=== PATIENT | female | born 1950 | race Caucasian/White ===

== ENCOUNTER 2020-05-01 18:00 | Inpatient (IN) ==
[2020-05-01] MEDS ORDERED: LEVAQUIN PREMIX IV 750 MG 750 MG/150 ML BAG IV SCH (19:00)
[2020-05-01 19:11] LABS: ABG BASE EXCESS -2.9 mmol/L (-2.0-2.0); ABG HCO3 18.7 mmol/L (22-26)
[2020-05-01 19:14] LABS: ABG ALLEN TEST POS
--- NOTE | 2020-05-01 19:59 | RAD ---
CHEST, 1 VIEWHISTORY: SOB, FEVER, COVIDStudy: Single view of the chest.Comparison:April 26, 2020Findings:The cardiomediastinal silhouette is normal. Bilateral interstitial prominence. No focal consolidations, pleural effusions or pneumothorax. Osseous structures demonstrate no acute abnormality.IMPRESSION:1. Bilateral interstitial prominence. Findings may represent atypical infection, including viral etiologies.Electronically signed by: MIKA TAI (May 01, 2020 19:58:19)
[2020-05-01 20:12] VITALS: BMI 26.0
[2020-05-01 20:13] LABS: BASOPHILS # (AUTO) 0.1 X10^3/uL (0.0-0.1); BASOPHILS % (AUTO) 0.7 % (0.2-1.0); EOSINOPHILS # (AUTO) 0.1 x10^3/uL (0.0-0.2); EOSINOPHILS % (AUTO) 0.6 % (0.9-2.9); HEMATOCRIT 43.9 % (36.0-47.0); HEMOGLOBIN 14.5 g/dL (12.0-16.0); LYMPHOCYTES # (AUTO) 2.1 X10^3/uL (1.3-2.9); LYMPHOCYTES % (AUTO) 17.1 % (21.0-51.0); MEAN CORPUSCULAR HEMOGLOBIN 26.6 pg (27.0-34.0); MEAN CORPUSCULAR HGB CONC 33.1 g/dL (33.0-35.0); MEAN CORPUSCULAR VOLUME 80.6 fL (80.0-100.0); MEAN PLATELET VOLUME 7.5 fL (7.4-11.0); MONOCYTES # (AUTO) 0.8 x10^3/uL (0.3-0.8); MONOCYTES % (AUTO) 6.3 % (0.0-13.0); NEUTROPHILS # (AUTO) 9.3 x10^3/uL (2.2-4.8); NEUTROPHILS % (AUTO) 75.3 % (42.0-75.0); PLATELET COUNT 289 X10^3/uL (150.0-450.0); RED BLOOD COUNT 5.45 X10^6/uL (3.5-5.4); RED CELL DISTRIBUTION WIDTH 14.4 % (11.6-16.5); WHITE BLOOD COUNT 12.3 X10^3/uL (3.6-10.0)
[2020-05-01 20:23] LABS: ALANINE AMINOTRANSFERASE 21 Units/L (12-78); ALBUMIN 3.6 g/dL (3.4-5.0); ALKALINE PHOSPHATASE 124 Units/L (46-116); ASPARTATE AMINO TRANSFERASE 19 Units/L (15-37); BLOOD UREA NITROGEN 22 mg/dL (7-18); CARBON DIOXIDE 20.4 mmol/L (21-32); CHLORIDE 104 mmol/L (98-107); COR NA(FOR HYPERGLY) 140 mmol/L (136-145); CREATININE 1.31 mg/dL (0.55-1.02); SODIUM 139 mmol/L (136-145); TOTAL PROTEIN 7.7 g/dL (6.4-8.2); eGFR NON BLACK RACES 43 (>60)
[2020-05-01] MEDS: DUONEB 0.5 MG/3 MG (3 mL) NEB PRN (20:30)
[2020-05-01] MEDS: MUCOMYST (RESPIRATORY USE ONLY) NEB SCH (20:30)
[2020-05-01] MEDS: PULMICORT NEB TX 0.5 MG NEB SCH (20:30)
[2020-05-01] MEDS ORDERED: NS 1/2 1000 ML IV 1,000 ML IV ONE (20:44)
[2020-05-01] MEDS ORDERED: LEVAQUIN PREMIX IV 750 MG 750 MG/150 ML BAG IV ONE (20:45)
[2020-05-01] MEDS: ROBITUSSIN DM PO SCH ×2 (21:00→21:48)
[2020-05-01] MEDS ORDERED: DUONEB 0.5 MG/3 MG (3 mL) NEB SCH (21:00)
[2020-05-01] MEDS: NS 1/2 1000 ML IV 1,000 ML IV SCH (21:00)
[2020-05-01] MEDS: VSL#3 PO SCH (21:00)
[2020-05-01] MEDS ORDERED: HumuLIN R SUBCUT PRN (23:06)
[2020-05-01] MEDS ORDERED: RESTORIL CAP 15 MG PO PRN (23:10)
[2020-05-01] MEDS ORDERED: RESTORIL CAP 15 MG PO ONE (23:19)
[2020-05-01] MEDS ORDERED: ULTRAM ONE (23:19)
[2020-05-01] MEDS: TUSSIONEX PENNKINETIC SUSP PO PRN (23:26)
[2020-05-01] MEDS: ULTRAM PO PRN (23:30)
[2020-05-02] MEDS: DUONEB 0.5 MG/3 MG (3 mL) NEB PRN ×5 (00:40→20:50)
[2020-05-02] MEDS: ULTRAM PO PRN ×2 (05:31→13:29)
[2020-05-02 05:44] LABS: ABG BASE EXCESS 0.1 mmol/L (-2.0-2.0); ABG HCO3 23.6 mmol/L (22-26)
[2020-05-02 05:45] LABS: ABG ALLEN TEST POS
[2020-05-02 06:19] LABS: BASOPHILS % (AUTO) 0.3 % (0.2-1.0); EOSINOPHILS # (AUTO) 0.1 x10^3/uL (0.0-0.2); EOSINOPHILS % (AUTO) 1.3 % (0.9-2.9); HEMATOCRIT 39.3 % (36.0-47.0); HEMOGLOBIN 12.9 g/dL (12.0-16.0); LYMPHOCYTES % (AUTO) 31.1 % (21.0-51.0); MEAN CORPUSCULAR HEMOGLOBIN 26.8 pg (27.0-34.0); MEAN CORPUSCULAR HGB CONC 32.9 g/dL (33.0-35.0); MEAN CORPUSCULAR VOLUME 81.7 fL (80.0-100.0); MEAN PLATELET VOLUME 7.6 fL (7.4-11.0); MONOCYTES # (AUTO) 0.5 x10^3/uL (0.3-0.8); MONOCYTES % (AUTO) 7.9 % (0.0-13.0); NEUTROPHILS # (AUTO) 3.8 x10^3/uL (2.2-4.8); NEUTROPHILS % (AUTO) 59.4 % (42.0-75.0); PLATELET COUNT 224 X10^3/uL (150.0-450.0); RED BLOOD COUNT 4.81 X10^6/uL (3.5-5.4); RED CELL DISTRIBUTION WIDTH 14.6 % (11.6-16.5); WHITE BLOOD COUNT 6.3 X10^3/uL (3.6-10.0)
--- NOTE | 2020-05-02 06:41 | RAD ---
HISTORYShortness of breathSTUDYChest AP [id number]/12/2020FINDINGSThe heart is upper limits normal in size. No congestive heart failure is noted. The krystal are normal. The lungs are free of acute alveolar infiltrates. No pleural effusions are identified. Bony thorax is unremarkable.IMPRESSIONNo significant abnormality identifiedElectronically signed by: TREVOR COATES (May 02, 2020 06:40:00)
[2020-05-02 07:28] LABS: ALANINE AMINOTRANSFERASE 16 Units/L (12-78); ALKALINE PHOSPHATASE 99 Units/L (46-116); ASPARTATE AMINO TRANSFERASE 16 Units/L (15-37); BLOOD UREA NITROGEN 14 mg/dL (7-18); CALCIUM 8.8 mg/dL (8.5-10.1); CARBON DIOXIDE 21.1 mmol/L (21-32); CHLORIDE 106 mmol/L (98-107); COR CA(FOR HYPOALB) 9.6 mg/dL (8.5-10.1); CREATININE 0.91 mg/dL (0.55-1.02); SODIUM 139 mmol/L (136-145); TOTAL PROTEIN 6.6 g/dL (6.4-8.2); eGFR NON BLACK RACES > 60 (>60)
[2020-05-02] MEDS: PULMICORT NEB TX 0.5 MG NEB SCH ×2 (09:30→20:50)
[2020-05-02] MEDS: MUCOMYST (RESPIRATORY USE ONLY) NEB SCH ×2 (09:30→20:50)
[2020-05-02] MEDS ORDERED: NORCO 10/325 TAB PO PRN (10:48)
[2020-05-02] MEDS: DECADRON TAB PO SCH (11:00)
[2020-05-02] MEDS ORDERED: NORVASC TAB 10 MG PO SCH ×2 (11:00→21:00)
[2020-05-02] MEDS: TORADOL 30 MG VIAL IVP SCH ×2 (11:00→18:39)
[2020-05-02] MEDS ORDERED: SYNTHROID 100 mcg TAB PO SCH (11:00)
[2020-05-02] MEDS: VSL#3 PO SCH (11:00)
[2020-05-02] MEDS: LOVENOX INJ 40 MG SYR SC SCH (11:00)
[2020-05-02] MEDS: ROBITUSSIN DM PO SCH ×4 (12:03→20:35)
[2020-05-02] MEDS ORDERED: ZESTRIL TAB 20 MG ONE (12:46)
[2020-05-02] MEDS ORDERED: NS 1/2 1000 ML IV 1,000 ML IV ONE ×2 (12:47→19:37)
[2020-05-02] MEDS ORDERED: GLUCOPHAGE ONE ×2 (12:47→19:37)
[2020-05-02] MEDS: NS 1/2 1000 ML IV 1,000 ML IV SCH ×2 (13:23→22:33)
[2020-05-02] MEDS: LOPRESSOR TAB 25 MG PO SCH ×3 (13:24→20:33)
[2020-05-02] MEDS: GLUCOPHAGE PO SCH ×2 (13:24→20:33)
[2020-05-02] MEDS: PROTONIX TAB 40 MG PO SCH (13:26)
[2020-05-02] MEDS: UNIPHYL TAB 400 MG 24-HR PO SCH ×2 (13:26→20:35)
[2020-05-02] MEDS: ZESTRIL TAB 20 MG PO SCH (13:27)
--- NOTE | 2020-05-02 14:21 | DR.UPDATE ---
H&P Update History and Physical Update: History and Physical reviewed and patient examined. Changes noted: Yes with the following: PRESENTED TO THE OFFICE WITH COMPLAINTS OF PERSISTENT COUGH, SOB, FEVER, AND WEAKNESS. SHE REPORTS BEING UNABLE TO SPEAK MUCH WITHOUT BECOMING SEVERELY SHORT OF BREATH. SHORTNESS OF BR EATH IS ALSO WORSE ON EXERTION. SYMPTOMS HAVE BEEN PRESENT X 1 WEEK. SHE WAS TESTED FOR COVID-19 IN THE ER ON 05/06/20 AND WAS POSITIVE. SHE WAS GIVEN SOLU- MEDROL PRIOR TO DISCHARGE FROM THE ER. SHE HAS BEEN TAKING AZITHROMYCIN 500MG IV DAILY X 3 DAYS WELL NEBULIZER TREATMENTS WITHOUT IMPROVEMENT IN SYMPTOMS. SHE WAS ADMITTED TO THE HOSPITAL FOR FURTHER EVALUATION AND TREATMENT OF PNEUMONIA DUE TO COVID-19. ON ARRIVAL TO THE ER, VITALS WERE 97.6-104-22-94%NC-135/81. LABS WERE OBTAINED. ABNORMAL LAB VALUES INCLUDE THE FOLLOWING: WBC 12.3, RBC 5.45, CARBON DIOXIDE 20.4, BUN 22, CREATININE 1.31, GLUCOSE 145, ALK PHOS 124, CRP 15.90. AN ABG WAS OBTAINED AND REVEALED: PH 7.500, PC02 24.0, P02 116.0, HC03 18.7, 02 SATURATION 99.0, BASE EXCESS -2.9, FI02 28.0. BLOOD CULTURES WERE SET UP. A CHEST XRAY WAS OBTAINED AND REVEALED: Bilateral interstitial prominence. Findings may represent atypical infection, including viral etiologies. SHE WAS STARTED ON 1/2NS AT 75 ML/HR, LEVAQUIN 750MG IV Q48H, DUONEBS PRN, PULMICORT NEBS BID, MUCOMYST NEBS BID, TUSSIONEX 5ML PO Q12H PRN, ROBITUSSIN DM 10ML PO QID, LOVENOX 40MG SC DAILY, TORADOL 30MG IV Q8H, AND DECADROM 6MG PO DAILY. HER HOME MEDICATIONS WERE ALSO RESUMED. OTHERWISE, WE PLAN TO FOLLOW UP WITH AM LABS, CHEST XRAY, ABG, AND CONTINUE TO MONITOR. Prescription drug monitoring program results: PDMP was not reviewed H&P Reviewed: Yes Patient was examined?: Yes
[2020-05-02] MEDS ORDERED: SNACK - Diabetic Appropriate PO SCH (20:00)
[2020-05-02] MEDS: XANAX PO PRN (20:33)
[2020-05-02] MEDS: PHENERGAN TAB 25 MG PO PRN (20:36)
[2020-05-02] MEDS ORDERED: CELEXA PO SCH (21:00)
[2020-05-02] MEDS ORDERED: ZOCOR TAB 20 MG PO SCH (21:00)
[2020-05-02] MEDS ORDERED: ZANAFLEX PO SCH (21:00)
[2020-05-02] MEDS ORDERED: AMBIEN PO SCH (21:00)
[2020-05-02] MEDS: TUSSIONEX PENNKINETIC SUSP PO PRN (21:25)
[2020-05-02] MEDS: ZAFIRLUKAST 20 MG PO SCH (22:31)
[2020-05-03] MEDS: TORADOL 30 MG VIAL IVP SCH ×2 (02:08→09:15)
[2020-05-03] MEDS: ULTRAM PO PRN (05:36)
[2020-05-03] MEDS: XANAX PO PRN (05:37)
[2020-05-03] MEDS: PHENERGAN TAB 25 MG PO PRN (05:37)
[2020-05-03 05:47] LABS: BASOPHILS % (AUTO) 0.2 % (0.2-1.0); EOSINOPHILS % (AUTO) 0.3 % (0.9-2.9); HEMATOCRIT 36.4 % (36.0-47.0); LYMPHOCYTES # (AUTO) 1.1 X10^3/uL (1.3-2.9); LYMPHOCYTES % (AUTO) 15.2 % (21.0-51.0); MEAN CORPUSCULAR HGB CONC 32.9 g/dL (33.0-35.0); MEAN CORPUSCULAR VOLUME 82.1 fL (80.0-100.0); MEAN PLATELET VOLUME 7.9 fL (7.4-11.0); MONOCYTES # (AUTO) 0.5 x10^3/uL (0.3-0.8); MONOCYTES % (AUTO) 6.9 % (0.0-13.0); NEUTROPHILS # (AUTO) 5.7 x10^3/uL (2.2-4.8); NEUTROPHILS % (AUTO) 77.4 % (42.0-75.0); PLATELET COUNT 220 X10^3/uL (150.0-450.0); RED BLOOD COUNT 4.44 X10^6/uL (3.5-5.4); RED CELL DISTRIBUTION WIDTH 14.1 % (11.6-16.5); WHITE BLOOD COUNT 7.3 X10^3/uL (3.6-10.0)
[2020-05-03 05:54] LABS: ALANINE AMINOTRANSFERASE 15 Units/L (12-78); ALBUMIN 2.9 g/dL (3.4-5.0); ALKALINE PHOSPHATASE 86 Units/L (46-116); ASPARTATE AMINO TRANSFERASE 15 Units/L (15-37); BLOOD UREA NITROGEN 17 mg/dL (7-18); CARBON DIOXIDE 22.2 mmol/L (21-32); CHLORIDE 108 mmol/L (98-107); COR CA(FOR HYPOALB) 9.9 mg/dL (8.5-10.1); COR NA(FOR HYPERGLY) 140 mmol/L (136-145); CREATININE 0.92 mg/dL (0.55-1.02); SODIUM 139 mmol/L (136-145); TOTAL PROTEIN 6.3 g/dL (6.4-8.2); eGFR NON BLACK RACES > 60 (>60)
[2020-05-03 05:58] LABS: ABG ALLEN TEST POS
--- NOTE | 2020-05-03 06:22 | RAD ---
HISTORYSOBSTUDYCHEST, 1 [id number]/13/2020TECHNIQUEAP view of the chestFINDINGSCardiac and mediastinal contours appear normal. Subsegmental atelectasis versus scar in the left base. No pleural effusion or pneumothorax.IMPRESSIONNo significant change.Electronically signed by: Ayden Butt (May 03, 2020 06:21:38)
[2020-05-03] MEDS ORDERED: SYNTHROID 100 mcg TAB PO SCH (06:30)
[2020-05-03] MEDS ORDERED: ZESTRIL TAB 20 MG ONE (08:00)
[2020-05-03] MEDS: MUCOMYST (RESPIRATORY USE ONLY) NEB SCH (08:50)
[2020-05-03] MEDS: PULMICORT NEB TX 0.5 MG NEB SCH (08:50)
[2020-05-03] MEDS: DECADRON TAB PO SCH (09:07)
[2020-05-03] MEDS: PROTONIX TAB 40 MG PO SCH (09:08)
[2020-05-03] MEDS: ZAFIRLUKAST 20 MG PO SCH (09:08)
[2020-05-03] MEDS: VSL#3 PO SCH (09:09)
[2020-05-03] MEDS: ROBITUSSIN DM PO SCH (09:09)
[2020-05-03] MEDS: UNIPHYL TAB 400 MG 24-HR PO SCH (09:09)
[2020-05-03] MEDS: LOPRESSOR TAB 25 MG PO SCH (09:10)
[2020-05-03] MEDS: ZESTRIL TAB 20 MG PO SCH (09:10)
[2020-05-03] MEDS: LOVENOX INJ 40 MG SYR SC SCH (09:11)
[2020-05-03] MEDS: GLUCOPHAGE PO SCH (09:12)
[2020-05-03] MEDS ORDERED: GLUCOPHAGE ONE (10:06)
[2020-05-03 10:16] VITALS: BP 130/73
[2020-05-03] MEDS ORDERED: LEVAQUIN PREMIX IV 750 MG 750 MG/150 ML BAG IV SCH (20:00)
== END 2020-05-03 12:40 | disposition home or self-care (01) | DRG 177 ==
LOC: MED/SURG 18:24
PROVIDERS: ADMIT Internal Medicine; ATTEND Internal Medicine

== ENCOUNTER 2020-10-29 20:04 | Inpatient (IN) ==
[2020-10-29 20:14] VITALS: BMI 27.6
--- NOTE | 2020-10-29 20:15 | DR.SOBA ---
HPI Time Seen Time Seen by Provider: 10/29/20 20:13 HPI Comment HPI Comment: Brought in by EMS for sob worsening over the past few days along with nausea and flu like symptoms; noted to have a fever of 101.5 by ems as well as tachycardia; no significant cough; had covid back in April; she feels like her anxiety may be worsening sob PMH PMH Past Medical History: Asthma, COPD, Depression, Diabetes, Dyslipidemia and Hypertension Past Surgical History: Yes Surgical History: Ortho Surgery Family History Family Medical History: Diabetes Mellitus and CT Social History Do you use any recreational Drugs:: No ROS Review of Systems Constitutional: Malaise and Fatigue Eyes: No Symptoms Reported ENTM: No Symptoms Reported Cardiovascular: No Symptoms Reported Genitourinary: No Symptoms Reported Neurological: No Symptoms Reported Integumentary: No Symptoms Reported Hematologic/Lymphatic: No Symptoms Reported Endocrine: No Symptoms Reported Psychiatric: Anxiety PE Vital Signs Vitals: Temperature 98.6 F Pulse Rate 121 Respiratory Rate 17 Blood Pressure [Left Arm] 130/73 Blood Pressure 173/92 O2 Sat by Pulse Oximetry 97 General Limitations: No Limitations General Appearance: Alert and In No Apparent Distress Head Head Exam: Normal Inspection Eyes Eye exam: Normal Appearance ENT ENT Exam: Normal Exam Neck Neck Exam: Normal Inspection Chest Chest Inspection: Normal Inspection Respiratory Respiratory Exam: Left: Rales and Upper: Rales Cardiovascular Cardiovascular Exam: Regular Rate and Tachycardia Abdominal Exam Abdominal Exam: Normal Inspection, Normal Bowel Sounds and Soft Extremities Extremities Exam: Normal Inspection Back Back Exam: Normal Inspection Neurologic Neurological Exam: Alert and Oriented X3 Psychiatric Psychiatric Exam: Normal Affect and Normal Mood Skin Skin Exam: Warm, Dry, Intact and Normal Color COURSE Consultation Called: 00:38 (Unable to get in touch with Dr Russell; admitted nonetheless with plan to notify emiliano) ROR Labs Reviewed Laboratory Results Reviewed?: Yes Result Diagrams: 10/29/20 20:40 10/29/20 20:40 Laboratory: WBC 14.4 X10^3/uL (3.6-10.0) H 10/29/20 20:40 RBC 4.92 X10^6/uL (3.5-5.4) 10/29/20 20:40 Hgb 12.9 g/dL (12.0-16.0) 10/29/20 20:40 Hct 40.8 % (36.0-47.0) 10/29/20 20:40 MCV 82.8 fL (80.0-100.0) 10/29/20 20:40 MCH 26.3 pg (27.0-34.0) L 10/29/20 20:40 MCHC 31.7 g/dL (33.0-35.0) L 10/29/20 20:40 RDW 15.8 % (11.6-16.5) 10/29/20 20:40 Plt Count 257 X10^3/uL (150.0-450.0) 10/29/20 20:40 Plt Count Comment Adequate (ADEQUATE) 10/29/20 20:40 MPV 7.9 fL (7.4-11.0) 10/29/20 20:40 Neut % (Auto) 88.4 % (42.0-75.0) H 10/29/20 20:40 Lymph % (Auto) 3.5 % (21.0-51.0) L 10/29/20 20:40 [place] % (Auto) 6.1 % (0.0-13.0) 10/29/20 20:40 Eos % (Auto) 0.3 % (0.9-2.9) L 10/29/20 20:40 Baso % (Auto) 1.7 % (0.2-1.0) H 10/29/20 20:40 Neut # (Auto) 12.7 x10^3/uL (2.2-4.8) H 10/29/20 20:40 Lymph # (Auto) 0.5 X10^3/uL (1.3-2.9) L 10/29/20 20:40 [place] # (Auto) 0.9 x10^3/uL (0.3-0.8) H 10/29/20 20:40 Eos # (Auto) 0.0 x10^3/uL (0.0-0.2) 10/29/20 20:40 Baso # (Auto) 0.3 X10^3/uL (0.0-0.1) H 10/29/20 20:40 Absolute Nucleated RBC 0.1 /100WBC 10/29/20 20:40 Total Counted 100 10/29/20 20:40 Neutrophils % (Manual) 88 % (39-76) H 10/29/20 20:40 Lymphocytes % (Manual) 7 % (13-43) L 10/29/20 20:40 Monocytes % (Manual) 4 % (4-9) 10/29/20 20:40 Plt Morphology Comment Normal (NORMAL) 10/29/20 20:40 RBC Morphology Normal (NORMAL) 10/29/20 20:40 Sample Site Lrad 10/29/20 20:50 ABG pH 7.450 (7.35-7.45) 10/29/20 20:50 ABG pCO2 32.0 mmHg (35.0-45.0) L 10/29/20 20:50 ABG pO2 83.0 mmHg (80.0-100.0) 10/29/20 20:50 ABG HCO3 22.2 mmol/L (22-26) 10/29/20 20:50 ABG O2 Saturation 97.0 % (90-100) 10/29/20 20:50 ABG Base Excess -1.1 mmol/L (-2.0-2.0) 10/29/20 20:50 Yoandy Test Pos 10/29/20 20:50 A-a Gradient 77.0 mmHg 10/29/20 20:50 FiO2 28.0 10/29/20 20:50 Blood Gas Comments Keny well ah 10/29/20 20:50 Sodium 140 mmol/L (136-145) 10/29/20 20:40 Corrected Sodium 142 mmol/L (136-145) 10/29/20 20:40 Potassium 4.0 mmol/L (3.5-5.1) 10/29/20 20:40 Chloride 105 mmol/L (98-107) 10/29/20 20:40 Carbon Dioxide 23.1 mmol/L (21-32) 10/29/20 20:40 BUN 18 mg/dL (7-18) 10/29/20 20:40 Creatinine 0.94 mg/dL (0.55-1.02) 10/29/20 20:40 Est GFR (MDRD) Af Amer > 60 (>60) 10/29/20 20:40 Est GFR (MDRD) Non-Af > 60 (>60) 10/29/20 20:40 Glucose 185 mg/dL (65-99) H 10/29/20 20:40 Calcium 10.3 mg/dL (8.5-10.1) H 10/29/20 20:40 Corrected Calcium TNP 10/29/20 20:40 Total Bilirubin 0.30 mg/dL (0.2-1.0) 10/29/20 20:40 AST 12 Units/L (15-37) L 10/29/20 20:40 ALT 12 Units/L (12-78) 10/29/20 20:40 Alkaline Phosphatase 110 Units/L (46-116) 10/29/20 20:40 Total Protein 7.3 g/dL (6.4-8.2) 10/29/20 20:40 Albumin 3.6 g/dL (3.4-5.0) 10/29/20 20:40 Globulin 3.7 g/dL (2.5-4.5) 10/29/20 20:40 Albumin/Globulin Ratio 1.0 Ratio (1.1-2.1) L 10/29/20 20:40 Influenza Type A (PCR) Negative (NEGATIVE) 10/29/20 20:38 Influenza Type B (PCR) Negative (NEGATIVE) 10/29/20 20:38 SARS CoV-2 RNA Rapid TANNA Negative (NEGATIVE) 10/29/20 20:38 XRAY XRAY Interpreted by: Radiologist X-ray Results: CXR: 1. Findings consistent with mild to moderate CHF or volume overload in the appropriate clinical setting (new findings); DDX includes (but is not limited to) acute pneumonia (e.g. Covid pneumonia) in the appropriate clinical setting. 2. Recommend clinical correlation and appropriate follow evaluation to ensure interval clearance as clinically warranted. 3. Consider follow up CT to rule out Covid pneumonia if clinically warranted. CT chest: Unremarkable CTA of the chest. Patchy multifocal pneumonic infiltrates involving the left upper and left lower lobes. Opioid Opioid Risk Tool Age (Marck box if 16-45): No History of Preadolescent Sexual Abuse: No Total: 0 Total Score Risk Category: Low Risk Copyright: Monroy predicting aberrant behaviors Diagnosis Discharge Problem: Hypoxia, Tachycardia Pneumonia involving left lung Qualifiers: Pneumonia type: due to unspecified organism Lung location: upper lobe of lung Qualified Code(s): J18.9 - Pneumonia, unspecified organism Dyspnea Qualifiers: Dyspnea type: shortness of breath Qualified Code(s): R06.02 - Shortness of breath Instructions Instructions: Shortness of Breath, Adult, [id number] Forms: Patient Portal Social Distancing
[2020-10-29 20:55] LABS: ABG ALLEN TEST POS; ABG BASE EXCESS -1.1 mmol/L (-2.0-2.0); ABG HCO3 22.2 mmol/L (22-26)
[2020-10-29 21:01] LABS: BASOPHILS # (AUTO) 0.3 X10^3/uL (0.0-0.1); BASOPHILS % (AUTO) 1.7 % (0.2-1.0); EOSINOPHILS % (AUTO) 0.3 % (0.9-2.9); HEMATOCRIT 40.8 % (36.0-47.0); HEMOGLOBIN 12.9 g/dL (12.0-16.0); LYMPHOCYTES # (AUTO) 0.5 X10^3/uL (1.3-2.9); LYMPHOCYTES % (AUTO) 3.5 % (21.0-51.0); MEAN CORPUSCULAR HEMOGLOBIN 26.3 pg (27.0-34.0); MEAN CORPUSCULAR HGB CONC 31.7 g/dL (33.0-35.0); MEAN CORPUSCULAR VOLUME 82.8 fL (80.0-100.0); MEAN PLATELET VOLUME 7.9 fL (7.4-11.0); MONOCYTES # (AUTO) 0.9 x10^3/uL (0.3-0.8); MONOCYTES % (AUTO) 6.1 % (0.0-13.0); NEUTROPHILS # (AUTO) 12.7 x10^3/uL (2.2-4.8); NEUTROPHILS % (AUTO) 88.4 % (42.0-75.0); PLATELET COUNT 257 X10^3/uL (150.0-450.0); RED BLOOD COUNT 4.92 X10^6/uL (3.5-5.4); RED CELL DISTRIBUTION WIDTH 15.8 % (11.6-16.5); WHITE BLOOD COUNT 14.4 X10^3/uL (3.6-10.0)
--- NOTE | 2020-10-29 21:06 | RAD ---
EXAM: CHEST X-RAYHISTORY: Difficulty breathing. Shortness of breath. Fever.TECHNIQUE: AP chest x-ray dated October 29, 2020 at 8:21 PM.COMPARISON: CXR dated May 03, 2020.FINDINGS:There is evidence for borderline cardiomegaly. The pulmonary vascularity and interstitial markings are diffusely prominent, especially in the left lower lung field, consistent with mild to moderate CHF or volume overload in the appropriate clinical setting; differential diagnosis includes (but is not limited to) mild bronchitis and interstitial pneumonia in the appropriate clinical setting.There is no gross focal lung consolidation, pleural effusion, or pneumothorax seen. The visualized bony structures are within normal limits.IMPRESSION:1. Findings consistent with mild to moderate CHF or volume overload in the appropriate clinical setting (new findings); DDX includes (but is not limited to) acute pneumonia (e.g. Covid pneumonia) in the appropriate clinical setting.2. Recommend clinical correlation and appropriate follow evaluation to ensure interval clearance as clinically warranted.3. Consider follow up CT to rule out Covid pneumonia if clinically warranted.Electronically signed by: Angel Ames (Oct 29, 2020 21:05:03)
[2020-10-29 21:09] LABS: ALANINE AMINOTRANSFERASE 12 Units/L (12-78); ALBUMIN 3.6 g/dL (3.4-5.0); ALKALINE PHOSPHATASE 110 Units/L (46-116); ASPARTATE AMINO TRANSFERASE 12 Units/L (15-37); BLOOD UREA NITROGEN 18 mg/dL (7-18); CALCIUM 10.3 mg/dL (8.5-10.1); CARBON DIOXIDE 23.1 mmol/L (21-32); CHLORIDE 105 mmol/L (98-107); COR NA(FOR HYPERGLY) 142 mmol/L (136-145); CREATININE 0.94 mg/dL (0.55-1.02); SODIUM 140 mmol/L (136-145); TOTAL PROTEIN 7.3 g/dL (6.4-8.2); eGFR NON BLACK RACES > 60 (>60)
[2020-10-29] MEDS ORDERED: NS 100 ML IV 100 ML IV ONE (21:34)
[2020-10-29 21:41] LABS: PLATELET MORPHOLOGY COMMENT NORMAL (NORMAL)
--- NOTE | 2020-10-29 22:17 | CT ---
HISTORYSOB, TACHYCARDIASTUDYCTA CHESTCOMPARISONChest radiograph 10/29/2020TECHNIQUEMultiple axial images of the chest were obtained from the thoracic inlet to the upper abdomen after the administration of IV contrast. 3D reconstructions utilizing axial MIPS imaging was performed and reviewed. Dose reduction techniques including Automated Exposure Control (AEC) and adjustment of mA and kV were utilized.FINDINGSThe mediastinum does not demonstrate significant pathological lymphadenopathy. There is no paracardial effusion observed. The thoracic aorta is normal in its contour without evidence for aneurysmal dilatation. The central pulmonary arterial system does not demonstrate central filling defects to suggest pulmonary emboli.Evaluation of the lung parenchyma demonstrates patchy multifocal pneumonic infiltrates within the left upper and lower lobes. No pleural effusion or pneumothorax.. No pulmonary nodule or mass can be identified. The bony thorax is unremarkable in its appearance . The visualized portions of the upper abdomen are grossly unremarkable .IMPRESSIONUnremarkable CTA of the chest.Patchy multifocal pneumonic infiltrates involving the left upper and left lower lobes.Electronically signed by: Sharath Hartley (Oct 29, 2020 22:15:37)
[2020-10-30] MEDS ORDERED: ZOSYN VIAL 2.25 GRAMS 2.25 G in NS 100 ML IV + SPIKE MINIBAG* 100 ML IV SCH (00:28)
[2020-10-30] MEDS ORDERED: DUONEB 0.5 MG/3 MG (3 mL) NEB PRN (00:33)
[2020-10-30] MEDS ORDERED: NS 1000 ML 1,000 ML ONE (00:51)
[2020-10-30] MEDS ORDERED: ZESTRIL TAB 20 MG ONE ×2 (00:54→20:32)
[2020-10-30] MEDS ORDERED: ULTRAM ONE ×2 (00:54→14:01)
[2020-10-30] MEDS: ULTRAM PO SCH ×4 (00:55→21:35)
[2020-10-30] MEDS: NS 1000 ML 1,000 ML IV SCH ×2 (01:01→14:09)
[2020-10-30] MEDS: ZESTRIL TAB 20 MG PO SCH ×2 (01:01→21:53)
[2020-10-30] MEDS ORDERED: NS 100 ML IV + SPIKE MINIBAG* 100 ML IV ONE ×3 (01:09→13:59)
[2020-10-30] MEDS ORDERED: ZOSYN VIAL 2.25 GRAMS IV ONE ×2 (01:09→05:51)
[2020-10-30] MEDS ORDERED: TOPROL XL PO ONE (01:09)
[2020-10-30] MEDS ORDERED: ZOFRAN INJ 4 MG VIAL IVP ONE (01:23)
[2020-10-30] MEDS: TOPROL XL PO SCH ×2 (01:23→10:40)
[2020-10-30] MEDS: ZOSYN VIAL 2.25 GRAMS 2.25 G in NS 100 ML IV + SPIKE MINIBAG* 100 ML IV SCH ×2 (01:23→06:03)
[2020-10-30] MEDS ORDERED: ZOFRAN INJ 4 MG VIAL ONE (01:24)
[2020-10-30 04:44] LABS: BASOPHILS # (AUTO) 0.1 X10^3/uL (0.0-0.1); BASOPHILS % (AUTO) 0.9 % (0.2-1.0); EOSINOPHILS % (AUTO) 0.1 % (0.9-2.9); HEMATOCRIT 35.4 % (36.0-47.0); HEMOGLOBIN 11.4 g/dL (12.0-16.0); LYMPHOCYTES # (AUTO) 1.8 X10^3/uL (1.3-2.9); LYMPHOCYTES % (AUTO) 11.7 % (21.0-51.0); MEAN CORPUSCULAR HEMOGLOBIN 26.5 pg (27.0-34.0); MEAN CORPUSCULAR HGB CONC 32.1 g/dL (33.0-35.0); MEAN CORPUSCULAR VOLUME 82.6 fL (80.0-100.0); MONOCYTES # (AUTO) 1.2 x10^3/uL (0.3-0.8); MONOCYTES % (AUTO) 7.4 % (0.0-13.0); NEUTROPHILS # (AUTO) 12.4 x10^3/uL (2.2-4.8); NEUTROPHILS % (AUTO) 79.9 % (42.0-75.0); PLATELET COUNT 240 X10^3/uL (150.0-450.0); RED BLOOD COUNT 4.29 X10^6/uL (3.5-5.4); RED CELL DISTRIBUTION WIDTH 16.3 % (11.6-16.5); WHITE BLOOD COUNT 15.5 X10^3/uL (3.6-10.0)
[2020-10-30 05:03] LABS: ALANINE AMINOTRANSFERASE 11 Units/L (12-78); ALKALINE PHOSPHATASE 81 Units/L (46-116); ASPARTATE AMINO TRANSFERASE 11 Units/L (15-37); BLOOD UREA NITROGEN 13 mg/dL (7-18); CALCIUM 9.8 mg/dL (8.5-10.1); CARBON DIOXIDE 25.4 mmol/L (21-32); CHLORIDE 106 mmol/L (98-107); COR CA(FOR HYPOALB) 10.6 mg/dL (8.5-10.1); COR NA(FOR HYPERGLY) 141 mmol/L (136-145); CREATININE 0.81 mg/dL (0.55-1.02); SODIUM 140 mmol/L (136-145); TOTAL PROTEIN 6.6 g/dL (6.4-8.2); eGFR NON BLACK RACES > 60 (>60)
[2020-10-30] MEDS ORDERED: TUSSIONEX PENNKINETIC SUSP PO PRN (08:19)
[2020-10-30] MEDS ORDERED: LEVAQUIN PREMIX IV 750 MG 750 MG/150 ML BAG IV ONE (08:56)
[2020-10-30] MEDS: LEVAQUIN PREMIX IV 750 MG 750 MG/150 ML BAG IV SCH (10:34)
[2020-10-30] MEDS: ROBITUSSIN DM PO SCH ×4 (10:35→21:15)
[2020-10-30] MEDS ORDERED: LOVENOX INJ 40 MG SYR SC ONE (10:36)
[2020-10-30] MEDS ORDERED: PHENERGAN TAB 25 MG PO PRN (10:39)
[2020-10-30] MEDS: LOVENOX INJ 40 MG SYR SC SCH (10:39)
[2020-10-30] MEDS ORDERED: LINZESS PO PRN (10:39)
[2020-10-30] MEDS ORDERED: ZOFRAN TAB 4 MG PO PRN (10:39)
[2020-10-30] MEDS ORDERED: UNIPHYL TAB 400 MG 24-HR PO SCH (11:00)
[2020-10-30] MEDS ORDERED: XANAX PO PRN (11:23)
[2020-10-30] MEDS ORDERED: PEPCID TAB 20 MG ONE (11:37)
[2020-10-30] MEDS ORDERED: PROTONIX TAB 40 MG PO ONE (11:37)
[2020-10-30] MEDS ORDERED: SOLU-Medrol 40 MG VIAL ONE (11:38)
[2020-10-30] MEDS: PEPCID TAB 20 MG PO SCH (12:02)
[2020-10-30] MEDS: ZAFIRLUKAST 20 MG PO SCH ×2 (12:02→21:15)
[2020-10-30] MEDS: SOLU-Medrol 40 MG VIAL IVP SCH ×3 (12:02→21:45)
[2020-10-30] MEDS: THEO-24 CAP 200 MG (24-HR) PO SCH ×2 (12:03→21:15)
[2020-10-30] MEDS: PROTONIX TAB 40 MG PO SCH ×2 (12:03→21:15)
--- NOTE | 2020-10-30 12:28 | DR.H&P ---
H&P - History & Physical for Day of: H&P Date: 10/30/20 - Chief Complaint Chief Complaint: SOB, NAUSEA, FEVER, BODY ACHES - History of Present Illness History of Present Illness: IS A 70 YEAR OLD PATIENT OF OURS WHO PRESENTED TO THE ER VIA EMS FOR COMPLAINTS OF SHORTNESS OF BREATH, NAUSEA, FEVER, AND BODY ACHES. SHE COMPLAINED OF CHEST TIGHTNESS, BUT DENIED PAIN. SYMPTOMS STARTED ABOUT THREE DAYS PRIOR AND HAVE PROGRESSIVELY GOTTEN WORSE. PATIENT REPORTS HAVING COVID BACK IN APRIL. HER PMH ALSO INCLUDES: ASTHMA, COPD, DEPRESSION, DIABETES, DYSLIPIDEMIA, AND HTN. EMS REPORTS THAT HER SATURATIONS ON ARRIVAL TO SCENE WERE 90%. SHE WAS PLACED ON OXYGEN VIA NASAL CANNULA AT 2 LPM. ON ARRIVAL TO THE ER, VITALS WERE 99.7-134-22-98%NC-164/80. LABS WERE OBTAINED. ABNORMAL LAB VALUES INCLUDE THE FOLLOWING: WBC 14.4, GLUCOSE 185, AST 12. ABG REVEALED: PH 7.450, PC02 32, P02 83, HC03 22.2, 02 SAT 97, BASE EXCESS -1.1, A-A GRADIENT 77, FI02 28. COVID AND INFLUENZA NEGATIVE. A CHEST XRAY WAS OBTAINED AND REVEALED: 1. Findings consistent with mild to moderate CHF or volume overload in the appropriate clinical setting (new findings); DDX includes (but is not limited to) acute pneumonia (e.g. Covid pneumonia) in the appropriate clinical setting. 2. Recommend clinical correlation and appropriate follow evaluation to ensure interval clearance as clinically warranted. 3. Consider follow up CT to rule out Covid pneumonia if clinically warranted. A CHEST CTA WAS THEN OBTAINED AND REVEALED: Unremarkable CTA of the chest. Patchy multifocal pneumonic infiltrates involving the left upper and left lower lobes. IN THE ER, SHE WAS GIVEN ZOFRAN 4MG IV X 1 DOSE AND ZOSYN 2.25G IV X 1 DOSE. SHE WAS ADMITTED TO THE HOSPITAL FOR FURTHER EVALUATION AND TREATMENT OF MULTIFOCAL PNEUMONIA AND HYPOXIA. SHE WAS STARTED ON THE PNUMONIA PROTOCOL WITH NORMAL SALINE AT 80 ML/HR, LEVAQUIN 750MG IV DAILY, ZOSYN 3.375G IV TID, DUONEBS TID, TUSSIONEX 5ML PO Q12H PRN, ROBITUSSIN DM 10 ML PO QID, LOVENOX 40MG SC DAILY, HUMULIN R SLIDING SCALE, SOLU-MEDROL 40MG IV Q8H, AND HER HOME MEDICATIONS WERE RESUMED. OTHERWISE, WE PLAN TO FOLLOW UP WITH AM LABS AND CHEST XRAY AND CONTINUE TO MONITOR. - Past Medical History Past Medical History: Hypertension, Dyslipidemia, Diabetes, Depression, COPD, Asthma - Past Surgical History Surgical History: Ortho Surgery - Family History Family Medical History: Diabetes Mellitus, [place] - Social History Does patient currently use any type of tobacco product: Yes Have you used tobacco products in the last 12 months: Yes Type of Tobacco Use: Cigarettes Does any household member use tobacco: No Alcohol Use: None Drug Use: None - Medications Home Medications: roflumilast [From [facility]] Allergy (Verified 10/29/20 20:41) CONTINUE taking the following medications famotidine [Pepcid] 20 mg PO DAILY 10/29/20 [History] linaclotide [Linzess] 145 mcg PO PRN PRN 10/29/20 [History] ondansetron HCl [Zofran] 4 mg PO Q6H PRN 10/29/20 [History] quetiapine [Seroquel] 100 mg PO HS 10/29/20 [History] - Review of Systems Constitutional: Fever, Chills, Weakness Eyes: No Symptoms Reported ENT: No Symptoms Reported Respiratory: Shortness of Breath Cardiovascular: No Symptoms Reported Gastrointestinal: No Symptoms Reported Genitourinary: No Symptoms Reported Musculoskeletal: No Symptoms Reported Skin: No Symptoms Reported Neurological: Weakness - Physical Exam Vital Signs: Temperature 98.6 F Pulse Rate [Right Radial] 70 Pulse Rate 121 Respiratory Rate 17 Blood Pressure [Left Arm] 98/75 Blood Pressure 173/92 O2 Sat by Pulse Oximetry 97 Oriented: Normal Eyes: Normal Ear: Normal Nose: Normal Throat: Normal Respiratory: Wheezes Throughout Cardiovascular: Tachycardia : Normal Auscultation: Bowel Sounds: Normal Palpation: Normal Tenderness: Normal Skin: Normal Musculoskeletal: Normal Psychiatric: Normal Mood Description: Calm Affect: Normal Speech Pattern: Clear - Assessment/Plan (1) Pneumonia involving left lung Qualifiers: Pneumonia type: due to unspecified organism Lung location: upper lobe of lung Qualified Code(s): J18.9 - Pneumonia, unspecified organism Status: Acute Plan: ADMIT, SUPPLEMENTAL OXYGEN, NORMAL SALINE AT 80 ML/HR, LEVAQUIN 750MG IV DAILY, ZOSYN 3.375G IV TID, DUONEBS TID, TUSSIONEX 5ML PO Q12H PRN, ROBITUSSIN DM 10 ML PO QID, LOVENOX 40MG SC DAILY, HUMULIN R SLIDING SCALE, SOLU-MEDROL 40MG IV Q8H, AND HER HOME MEDICATIONS WERE RESUMED (2) Hypoxia Status: Acute - Allergies Allergies/Adverse Reactions: Allergies Allergy/AdvReac Type Severity Reaction Status Date / Time roflumilast [From [facility]] Allergy Verified 10/29/20 20:41
[2020-10-30] MEDS ORDERED: ZOSYN VIAL 3.375 GRAMS IV ONE (13:59)
[2020-10-30] MEDS: DUONEB 0.5 MG/3 MG (3 mL) NEB SCH ×2 (14:00→21:30)
[2020-10-30] MEDS ORDERED: DUONEB 0.5 MG/3 MG (3 mL) NEB ONE (14:08)
[2020-10-30] MEDS: ZOSYN VIAL 3.375 GRAMS 3.375 G in NS 100 ML IV + SPIKE MINIBAG* 100 ML IV SCH ×2 (14:10→21:35)
[2020-10-30] MEDS: NORCO 10/325 TAB PO PRN (18:00)
[2020-10-30] MEDS: SNACK - Diabetic Appropriate PO SCH (20:15)
[2020-10-30] MEDS ORDERED: ZESTRIL TAB 20 MG PO SCH (21:00)
[2020-10-30] MEDS ORDERED: HumuLIN R ONE (21:02)
[2020-10-30] MEDS: HumuLIN R SUBCUT PRN (21:15)
[2020-10-30] MEDS: AMBIEN PO SCH (21:15)
[2020-10-30] MEDS: SYNTHROID 100 mcg TAB PO SCH (21:15)
[2020-10-30] MEDS: ZOCOR TAB 20 MG PO SCH (21:15)
[2020-10-30] MEDS: NORVASC TAB 10 MG PO SCH (21:50)
[2020-10-30] MEDS: ZANAFLEX PO SCH (21:53)
[2020-10-31] MEDS: SOLU-Medrol 40 MG VIAL IVP SCH ×3 (05:20→21:44)
[2020-10-31] MEDS: ULTRAM PO SCH ×4 (05:25→21:47)
[2020-10-31] MEDS: NS 1000 ML 1,000 ML IV SCH ×2 (05:25→15:47)
[2020-10-31] MEDS: HumuLIN R SUBCUT PRN (05:38)
[2020-10-31] MEDS: ZOSYN VIAL 3.375 GRAMS 3.375 G in NS 100 ML IV + SPIKE MINIBAG* 100 ML IV SCH ×3 (05:39→21:43)
[2020-10-31 06:06] LABS: BASOPHILS % (AUTO) 0.4 % (0.2-1.0); EOSINOPHILS % (AUTO) 0.1 % (0.9-2.9); HEMATOCRIT 32.9 % (36.0-47.0); HEMOGLOBIN 10.9 g/dL (12.0-16.0); LYMPHOCYTES # (AUTO) 0.5 X10^3/uL (1.3-2.9); MEAN CORPUSCULAR HEMOGLOBIN 27.5 pg (27.0-34.0); MEAN CORPUSCULAR HGB CONC 33.1 g/dL (33.0-35.0); MEAN CORPUSCULAR VOLUME 82.9 fL (80.0-100.0); MEAN PLATELET VOLUME 8.5 fL (7.4-11.0); MONOCYTES # (AUTO) 0.3 x10^3/uL (0.3-0.8); MONOCYTES % (AUTO) 3.1 % (0.0-13.0); NEUTROPHILS # (AUTO) 9.4 x10^3/uL (2.2-4.8); NEUTROPHILS % (AUTO) 91.4 % (42.0-75.0); PLATELET COUNT 225 X10^3/uL (150.0-450.0); RED BLOOD COUNT 3.98 X10^6/uL (3.5-5.4); RED CELL DISTRIBUTION WIDTH 16.5 % (11.6-16.5); WHITE BLOOD COUNT 10.2 X10^3/uL (3.6-10.0)
--- NOTE | 2020-10-31 06:09 | RAD ---
HISTORYShortness of breathSTUDYChest AP portableCOMPARISON9 October 2020 chest x-ray and CTA chestFINDINGSHeart is within normal limits in size. Vivien are normal. Bibasilar lung infiltrates are identified. There is some improvement in the left basilar lung infiltrate when compared to the prior examination. The upper lung back are clear. No pleural effusions are identified. Bony thorax is unremarkable.IMPRESSIONRight basilar lung infiltrate unchangedImproving left basilar lung infiltrateElectronically signed by: TREVOR COATES (Oct 31, 2020 06:07:19)
[2020-10-31] MEDS: DUONEB 0.5 MG/3 MG (3 mL) NEB SCH ×3 (06:13→21:50)
[2020-10-31 06:23] LABS: ALANINE AMINOTRANSFERASE 14 Units/L (12-78); ALKALINE PHOSPHATASE 93 Units/L (46-116); ASPARTATE AMINO TRANSFERASE 14 Units/L (15-37); BLOOD UREA NITROGEN 13 mg/dL (7-18); CALCIUM 9.4 mg/dL (8.5-10.1); CARBON DIOXIDE 21.7 mmol/L (21-32); CHLORIDE 107 mmol/L (98-107); COR CA(FOR HYPOALB) 10.2 mg/dL (8.5-10.1); COR NA(FOR HYPERGLY) 142 mmol/L (136-145); CREATININE 0.87 mg/dL (0.55-1.02); SODIUM 139 mmol/L (136-145); TOTAL PROTEIN 6.7 g/dL (6.4-8.2); eGFR NON BLACK RACES > 60 (>60)
[2020-10-31 06:51] LABS: BAND NEUTROPHILS % 1 % (0-10)
[2020-10-31 06:52] LABS: PLATELET MORPHOLOGY COMMENT NORMAL (NORMAL)
[2020-10-31] MEDS ORDERED: TOPROL XL PO ONE (09:08)
[2020-10-31] MEDS: THEO-24 CAP 200 MG (24-HR) PO SCH ×2 (09:34→21:41)
[2020-10-31] MEDS: LEVAQUIN PREMIX IV 750 MG 750 MG/150 ML BAG IV SCH (09:36)
[2020-10-31] MEDS: LOVENOX INJ 40 MG SYR SC SCH (09:37)
[2020-10-31] MEDS: PEPCID TAB 20 MG PO SCH (09:37)
[2020-10-31] MEDS: ZAFIRLUKAST 20 MG PO SCH ×2 (09:38→21:42)
[2020-10-31] MEDS: ROBITUSSIN DM PO SCH ×4 (09:38→21:40)
[2020-10-31] MEDS: PROTONIX TAB 40 MG PO SCH ×2 (09:38→21:40)
[2020-10-31] MEDS: TOPROL XL PO SCH (09:38)
[2020-10-31] MEDS: NORCO 10/325 TAB PO PRN (10:35)
[2020-10-31] MEDS: SNACK - Diabetic Appropriate PO SCH (20:00)
[2020-10-31] MEDS ORDERED: ZESTRIL TAB 20 MG ONE (20:29)
[2020-10-31] MEDS: AMBIEN PO SCH (21:38)
[2020-10-31] MEDS: NORVASC TAB 10 MG PO SCH (21:39)
[2020-10-31] MEDS: SYNTHROID 100 mcg TAB PO SCH (21:41)
[2020-10-31] MEDS: ZOCOR TAB 20 MG PO SCH (21:42)
[2020-10-31] MEDS: ZESTRIL TAB 20 MG PO SCH (21:43)
[2020-10-31] MEDS: ZANAFLEX PO SCH ×2 (21:43→23:58)
[2020-11-01 05:14] LABS: BASOPHILS # (AUTO) 0.1 X10^3/uL (0.0-0.1); BASOPHILS % (AUTO) 0.4 % (0.2-1.0); HEMATOCRIT 33.1 % (36.0-47.0); HEMOGLOBIN 10.5 g/dL (12.0-16.0); LYMPHOCYTES # (AUTO) 0.8 X10^3/uL (1.3-2.9); LYMPHOCYTES % (AUTO) 5.6 % (21.0-51.0); MEAN CORPUSCULAR HEMOGLOBIN 26.4 pg (27.0-34.0); MEAN CORPUSCULAR HGB CONC 31.8 g/dL (33.0-35.0); MEAN CORPUSCULAR VOLUME 82.9 fL (80.0-100.0); MEAN PLATELET VOLUME 8.6 fL (7.4-11.0); MONOCYTES # (AUTO) 0.6 x10^3/uL (0.3-0.8); NEUTROPHILS # (AUTO) 13.3 x10^3/uL (2.2-4.8); PLATELET COUNT 259 X10^3/uL (150.0-450.0); RED BLOOD COUNT 3.99 X10^6/uL (3.5-5.4); WHITE BLOOD COUNT 14.8 X10^3/uL (3.6-10.0)
[2020-11-01 05:24] LABS: ALANINE AMINOTRANSFERASE 15 Units/L (12-78); ALBUMIN 2.8 g/dL (3.4-5.0); ALKALINE PHOSPHATASE 87 Units/L (46-116); ASPARTATE AMINO TRANSFERASE 12 Units/L (15-37); BLOOD UREA NITROGEN 12 mg/dL (7-18); CALCIUM 9.5 mg/dL (8.5-10.1); CARBON DIOXIDE 21.6 mmol/L (21-32); CHLORIDE 109 mmol/L (98-107); COR CA(FOR HYPOALB) 10.5 mg/dL (8.5-10.1); COR NA(FOR HYPERGLY) 143 mmol/L (136-145); SODIUM 141 mmol/L (136-145); TOTAL PROTEIN 6.3 g/dL (6.4-8.2); eGFR NON BLACK RACES > 60 (>60)
[2020-11-01] MEDS: SOLU-Medrol 40 MG VIAL IVP SCH (05:24)
[2020-11-01] MEDS: NS 1000 ML 1,000 ML IV SCH (05:24)
[2020-11-01] MEDS: ULTRAM PO SCH (05:24)
[2020-11-01] MEDS: ZOSYN VIAL 3.375 GRAMS 3.375 G in NS 100 ML IV + SPIKE MINIBAG* 100 ML IV SCH (05:26)
--- NOTE | 2020-11-01 06:02 | RAD ---
HISTORYShortness of breathSTUDYChest AP [id number] October 2020FINDINGSHeart is within normal limits in size. The krystal are normal. Right basilar lung infiltrate continues to improve. Left basilar lung infiltrate is nearly resolved. The upper lung back are clear. No pleural effusions are identified. Bony thorax is unremarkable.IMPRESSIONContinued improvement bibasilar lung infiltratesElectronically signed by: TREVOR COATES (Nov 01, 2020 06:00:15)
[2020-11-01] MEDS: DUONEB 0.5 MG/3 MG (3 mL) NEB SCH (06:11)
[2020-11-01] MEDS: HumuLIN R SUBCUT PRN ×2 (06:30→06:33)
[2020-11-01] MEDS ORDERED: TOPROL XL PO ONE (08:48)
[2020-11-01] MEDS ORDERED: UNIPHYL TAB 400 MG 24-HR PO SCH (09:00)
[2020-11-01] MEDS: LEVAQUIN PREMIX IV 750 MG 750 MG/150 ML BAG IV SCH (09:08)
[2020-11-01] MEDS: LOVENOX INJ 40 MG SYR SC SCH (09:08)
[2020-11-01] MEDS: PEPCID TAB 20 MG PO SCH (09:09)
[2020-11-01] MEDS: ZAFIRLUKAST 20 MG PO SCH (09:10)
[2020-11-01] MEDS: TOPROL XL PO SCH (09:10)
[2020-11-01] MEDS: ROBITUSSIN DM PO SCH (09:10)
[2020-11-01] MEDS: PROTONIX TAB 40 MG PO SCH (09:10)
[2020-11-01 11:45] VITALS: BP 118/72
--- NOTE | 2020-12-22 21:24 | PCM.PROG ---
Progress Note - Progress Note for Day of Date of Exam: 10/31/20 - Subjective Subjective: WAS ADMITTED FOR TREATMENT OF LEFT LUNG PNEUMONIA AND HYPOXIA. TODAY, SHE IS ALERT AND ORIENTED, LYING IN BED ON MORNING ROUNDS. SHE CONTINUES WITH COMPLAINTS OF SHORTNESS OF BREATH, WEAKNESS, AND BODY ACHES TODAY. ON EXAMINATION, HEART IS REGULAR IN RATE AND RHYTHM. BILATERAL LUNGS ARE NOTED WITH WHEEZES THROUGHOUT. ABDOMEN IS ROUND, SOFT, AND NON-TENDER WITH NORMAL BOWEL SOUNDS NOTED IN ALL QUADRANTS. HER VITALS THIS MORNING ARE: 98.1-99-22-95%-154/73. LABS WERE OBTAINED. ABNORMAL LAB VALUES INCLUDE THE FOLLOWING: WBC 10.2, HGB 10.9, HCT 32.9, GLUCOSE 206, AST 14, ALBUMIN 3.0. BLOOD CULTURES ARE PENDING. A CHEST XRAY WAS OBTAINED AND REVEALED: Right basilar lung infiltrate unchanged. Improving left basilar lung infiltrate. SHE IS CURRENTLY RECEIVING NORMAL SALINE AT 80 ML/HR, LEVAQUIN 750MG IV DAILY, ZOSYN 3.375G IV TID, DUONEBS TID, TUSSIONEX 5ML PO Q12H PRN, ROBITUSSIN DM 10 ML PO QID, LOVENOX 40MG SC DAILY, HUMULIN R SLIDING SCALE, SOLU-MEDROL 40MG IV Q8H, AND HER HOME MEDICATIONS WERE RESUMED. WE WILL CONTINUE WITH CURRENT PLAN OF CARE TODAY. TIME SPENT ON CLINICAL ASSESSMENT, REVIEWING LABS AND IMAGING, DECISION MAKING, AND DOCUMENTATION WAS GREATER THAN 45 MINUTES. - Past Medical Family Social History Past Med/Fam/Surg Hx: No changes since H&P Allergies: Allergies roflumilast [From [facility]] Allergy (Verified 10/29/20 20:41) - Review of Systems ROS: No change since H&P - Vital Signs and I&O's Vital Signs: Temperature 97.5 F Pulse Rate [Right Radial] 80 Pulse Rate 85 Respiratory Rate 20 Blood Pressure [Left Arm] 118/72 Blood Pressure 173/92 O2 Sat by Pulse Oximetry 97 - Physical Exam Oriented: Normal Eyes: Normal Ear: Normal Nose: Normal Throat: Normal Respiratory: Generalized, Wheezes Cardiovascular: Tachycardia : Normal Auscultation: Bowel Sounds: Normal Palpation: Normal Tenderness: Normal Skin: Normal Musculoskeletal: Normal Psychiatric: Normal Mood Description: Calm Affect: Normal Speech Pattern: Clear, Appropriate - Laboratory and Diagnostics Result Diagrams: 11/01/20 04:00 11/01/20 04:00 Labs: 10/30/20 17:00 Blood Blood Culture - Final 10/30/20 16:51 Blood Blood Culture - Final Laboratory WBC 14.8 X10^3/uL (3.6-10.0) H 11/01/20 04:00 RBC 3.99 X10^6/uL (3.5-5.4) 11/01/20 04:00 Hgb 10.5 g/dL (12.0-16.0) L 11/01/20 04:00 Hct 33.1 % (36.0-47.0) L 11/01/20 04:00 MCV 82.9 fL (80.0-100.0) 11/01/20 04:00 MCH 26.4 pg (27.0-34.0) L 11/01/20 04:00 MCHC 31.8 g/dL (33.0-35.0) L 11/01/20 04:00 RDW 16.0 % (11.6-16.5) 11/01/20 04:00 Plt Count 259 X10^3/uL (150.0-450.0) 11/01/20 04:00 Plt Count Comment Adequate (ADEQUATE) 10/31/20 03:50 MPV 8.6 fL (7.4-11.0) 11/01/20 04:00 Neut % (Auto) 90.0 % (42.0-75.0) H 11/01/20 04:00 Lymph % (Auto) 5.6 % (21.0-51.0) L 11/01/20 04:00 [place] % (Auto) 4.0 % (0.0-13.0) 11/01/20 04:00 Eos % (Auto) 0.0 % (0.9-2.9) L 11/01/20 04:00 Baso % (Auto) 0.4 % (0.2-1.0) 11/01/20 04:00 Neut # (Auto) 13.3 x10^3/uL (2.2-4.8) H 11/01/20 04:00 Lymph # (Auto) 0.8 X10^3/uL (1.3-2.9) L 11/01/20 04:00 [place] # (Auto) 0.6 x10^3/uL (0.3-0.8) 11/01/20 04:00 Eos # (Auto) 0.0 x10^3/uL (0.0-0.2) 11/01/20 04:00 Baso # (Auto) 0.1 X10^3/uL (0.0-0.1) 11/01/20 04:00 Absolute Nucleated RBC 0.0 /100WBC 11/01/20 04:00 Total Counted 100 10/31/20 03:50 Neutrophils % (Manual) 91 % (39-76) H 10/31/20 03:50 Band Neutrophils % 1 % (0-10) 10/31/20 03:50 Lymphocytes % (Manual) 2 % (13-43) L 10/31/20 03:50 Monocytes % (Manual) 6 % (4-9) 10/31/20 03:50 Plt Morphology Comment Normal (NORMAL) 10/31/20 03:50 RBC Morphology Normal (NORMAL) 10/31/20 03:50 Sample Site Lrad 10/29/20 20:50 ABG pH 7.450 (7.35-7.45) 10/29/20 20:50 ABG pCO2 32.0 mmHg (35.0-45.0) L 10/29/20 20:50 ABG pO2 83.0 mmHg (80.0-100.0) 10/29/20 20:50 ABG HCO3 22.2 mmol/L (22-26) 10/29/20 20:50 ABG O2 Saturation 97.0 % (90-100) 10/29/20 20:50 ABG Base Excess -1.1 mmol/L (-2.0-2.0) 10/29/20 20:50 Yoandy Test Pos 10/29/20 20:50 A-a Gradient 77.0 mmHg 10/29/20 20:50 FiO2 28.0 10/29/20 20:50 Blood Gas Comments Keny well ah 10/29/20 20:50 Sodium 141 mmol/L (136-145) 11/01/20 04:00 Corrected Sodium 143 mmol/L (136-145) 11/01/20 04:00 Potassium 3.8 mmol/L (3.5-5.1) 11/01/20 04:00 Chloride 109 mmol/L (98-107) H 11/01/20 04:00 Carbon Dioxide 21.6 mmol/L (21-32) 11/01/20 04:00 BUN 12 mg/dL (7-18) 11/01/20 04:00 Creatinine 0.80 mg/dL (0.55-1.02) 11/01/20 04:00 Est GFR (MDRD) Af Amer > 60 (>60) 11/01/20 04:00 Est GFR (MDRD) Non-Af > 60 (>60) 11/01/20 04:00 Glucose 204 mg/dL (65-99) H 11/01/20 04:00 POC Glucose (mg/dL) 167 mg/dL (65-99) H 10/31/20 19:58 Calcium 9.5 mg/dL (8.5-10.1) 11/01/20 04:00 Corrected Calcium 10.5 mg/dL (8.5-10.1) H 11/01/20 04:00 Total Bilirubin 0.20 mg/dL (0.2-1.0) 11/01/20 04:00 AST 12 Units/L (15-37) L 11/01/20 04:00 ALT 15 Units/L (12-78) 11/01/20 04:00 Alkaline Phosphatase 87 Units/L (46-116) 11/01/20 04:00 B-Natriuretic Peptide 25.8 pg/mL (0-79) 10/30/20 04:25 Total Protein 6.3 g/dL (6.4-8.2) L 11/01/20 04:00 Albumin 2.8 g/dL (3.4-5.0) L 11/01/20 04:00 Globulin 3.5 g/dL (2.5-4.5) 11/01/20 04:00 Albumin/Globulin Ratio 0.8 Ratio (1.1-2.1) L 11/01/20 04:00 Influenza Type A (PCR) Negative (NEGATIVE) 10/29/20 20:38 Influenza Type B (PCR) Negative (NEGATIVE) 10/29/20 20:38 SARS CoV-2 RNA Rapid TANNA Negative (NEGATIVE) 10/29/20 20:38 SARS-CoV-2 IgG Ab Negative (Negative) 10/30/20 04:25 SARS-CoV-2 IgG (JACQUIE) 1 0.4 IV (<=0.7) 10/30/20 04:25 Miscellaneous Test Covid 19 10/30/20 12:38 - Plan (1) Pneumonia involving left lung Status: Acute Qualifiers: Pneumonia type: due to unspecified organism Lung location: upper lobe of lung Qualified Code(s): J18.9 - Pneumonia, unspecified organism Plan: SUPPLEMENTAL OXYGEN, NORMAL SALINE AT 80 ML/HR, LEVAQUIN 750MG IV DAILY, ZOSYN 3.375G IV TID, DUONEBS TID, TUSSIONEX 5ML PO Q12H PRN, ROBITUSSIN DM 10 ML PO QID, LOVENOX 40MG SC DAILY, HUMULIN R SLIDING SCALE, SOLU-MEDROL 40MG IV Q8H, AND HER HOME MEDICATIONS WERE RESUMED (2) Hypoxia Status: Acute
== END 2020-11-01 12:20 | disposition home or self-care (01) | DRG 195 ==
LOC: MED/SURG 20:04 → ER 20:04 → OBSVTOIN 10-30 00:33 → MED/SURG 10-30 00:40 → OBS 10-30 17:20
PROVIDERS: ADMIT Internal Medicine; ATTEND Internal Medicine
DX: Z20.822 Contact with and (suspected) exposure to COVID-19; E11.65 Type 2 diabetes mellitus with hyperglycemia; F41.8 Other specified anxiety disorders; I11.0 Hypertensive heart disease with heart failure; R06.02 Shortness of breath; R00.0 Tachycardia, unspecified; E78.2 Mixed hyperlipidemia; J44.9 Chronic obstructive pulmonary disease, unspecified; J18.8 Other pneumonia, unspecified organism; R50.9 Fever, unspecified; I50.9 Heart failure, unspecified; Z86.16 Personal history of COVID-19